=== PATIENT | male | born 1955 | race Caucasian/White ===

== ENCOUNTER 2022-11-12 08:58 | Day surgery (SDC) | payer OTHER ==
[2022-11-04 13:22] VITALS: BMI 32.3
[2022-11-12] MEDS ORDERED: TRANEXAMIC ACID 1000 MG/10 ML VIAL IVPUSH ONE (09:31)
[2022-11-12] MEDS ORDERED: CELECOXIB 200 MG CAPSULE PO ONE (09:31)
[2022-11-12] MEDS ORDERED: CEFAZOLIN 2 GM in DEXTROSE 5%-WATER - 50 ML IVPB ONE (09:31)
[2022-11-12] MEDS ORDERED: DEXAMETHASONE SOD PHOSPHATE/PF 10 MG/ML SDV ONE (10:44)
[2022-11-12] MEDS ORDERED: ACETAMINOPHEN INJECTION 100 ML IVPB ONE (10:44)
[2022-11-12] MEDS ORDERED: BUPIVACAINE HCL/PF 0.5% (5 MG/ML) 30 ML VIAL IJ ONE (10:44)
[2022-11-12] MEDS ORDERED: ceFAZolin SODIUM 1 GM VIAL ONE (10:44)
[2022-11-12] MEDS ORDERED: VANCOMYCIN 1,000 MG VIAL (RESTRICTED TO ID ONLY) ONE ×3 (10:45→13:17)
[2022-11-12] MEDS ORDERED: MIDAZOLAM HCL 2 MG/2 ML SINGLE DOSE VIAL ONE (10:49)
[2022-11-12] MEDS ORDERED: ONDANSETRON 4 MG/2 ML VIAL IVPUSH PRN (11:11)
[2022-11-12] MEDS ORDERED: PROPOFOL 60 ML ONE (11:14)
[2022-11-12] MEDS ORDERED: LACTATED RINGERS SOLUTION 1,000 ML IV SCH ×2 (11:15→11:30)
[2022-11-12] MEDS ORDERED: CLINDAMYCIN 600MG PREMIX IVPB 600 MG/50 ML BAG IVPB ONE ×2 (11:16)
[2022-11-12] MEDS ORDERED: DEXAMETHASONE SOD PHOSPHATE 4 MG/1 ML VIAL ONE (11:16)
[2022-11-12] MEDS ORDERED: KETOROLAC TROMETHAMINE 30 MG/1 ML VIAL ONE (11:16)
[2022-11-12] MEDS ORDERED: TRANEXAMIC ACID 1000 MG/10 ML VIAL ONE (11:16)
[2022-11-12] MEDS ORDERED: oxyCODONE HCL 5 MG TABLET PO PRN ×2 (11:28→13:45)
[2022-11-12] MEDS ORDERED: ACETAMINOPHEN 325 MG TABLET (FP) PO PRN (11:28)
[2022-11-12] MEDS ORDERED: PROPOFOL 20 ML ONE ×2 (12:51→13:20)
[2022-11-12] MEDS: ACETAMINOPHEN 500 MG TABLET (FP) PO PRN (18:37)
[2022-11-12 19:45] VITALS: RESP 18
[2022-11-12] MEDS: SENNOSIDES/DOCUSATE COMBO (SENNA PLUS) TABLET (UD) PO SCH (22:04)
[2022-11-13] MEDS: ACETAMINOPHEN 500 MG TABLET (FP) PO PRN ×2 (05:32→12:05)
[2022-11-13] MEDS ORDERED: ASPIRIN 325 MG TABLET PO SCH (08:00)
[2022-11-13 08:39] LABS: HEMATOCRIT 37.4 % (35.4-49); HEMOGLOBIN 12.6 G/dL (11.7-16.9); MCH 33.3 pg (25.7-33.7); MCHC 33.7 g/dl (32.0-35.9); MEAN CELL VOLUME 98.6 fl (80-96); MEAN PLT VOLUME 8.2 fl (7.5-11.1); PLATELET COUNT 207.1 10^3/uL (134-434); RBC 3.79 10^6/uL (4.00-5.60); RDW 13.3 % (11.9-15.9); WHITE BLOOD COUNT 16.7 10^3/uL (4.0-10.8)
[2022-11-13 09:18] VITALS: BP 137/67; PULSE 86; TEMP 98.1
[2022-11-13] MEDS ORDERED: PANTOPRAZOLE 40 MG TABLET PO SCH (10:00)
[2022-11-13] MEDS ORDERED: LOSARTAN 50MG/HCTZ 12.5MG 1 TAB PO SCH (10:00)
[2022-11-13] MEDS: SENNOSIDES/DOCUSATE COMBO (SENNA PLUS) TABLET (UD) PO SCH (10:00)
[2022-11-13] MEDS ORDERED: MULTIVITAMINS (DAILY MVI) TABLET (FP) PO SCH (10:00)
[2022-11-13] MEDS ORDERED: ATORVASTATIN CA 10 MG TABLET (FP) PO SCH (22:00)
== END 2022-11-13 12:24 | disposition home health service (06) ==
LOC: FASUSAT 08:58 → FM/S 16:55 → FASUSAT 11-13 12:24
PROVIDERS: ATTEND Orthopaedic Surgery
PROC: 8E0Y0CZ Robotic Assisted Procedure of Lower Extremity, Open Approach (ICD-10-PCS; 2022-11-12)
PROC: 0SRD0JA Replacement of Left Knee Joint with Synthetic Substitute, Uncemented, Open Approach (ICD-10-PCS; principal; 2022-11-12 12:03)
DX: M17.12 Unilateral primary osteoarthritis, left knee (principal)
CPT/HCPCS: 20985; 27447; C1776; S2900; 36415; 73560-TC-LT-FY; 85027; 94760; 97010-GP; 97116-GP; 97162-GP; C1713

== ENCOUNTER 2023-07-08 08:35 | Day surgery (SDC) | payer OTHER ==
[2023-07-01 14:08] VITALS: BMI 32.8
[2023-07-08] MEDS ORDERED: BUPIVACAINE HCL/PF 2.5 MG/ML - 30 ML VIAL IJ ONE (10:32)
[2023-07-08] MEDS ORDERED: BUPIVACAINE LIPOSOME/PF (EXPAREL) 266 MG/20 ML VIAL ONE (10:32)
[2023-07-08] MEDS ORDERED: BUPIVACAINE HCL/PF 0.5% (5MG/ML) 10 ML VIAL ONE ×2 (10:36→10:40)
[2023-07-08] MEDS ORDERED: MIDAZOLAM HCL 2 MG/2 ML SINGLE DOSE VIAL ONE (10:38)
[2023-07-08] MEDS ORDERED: ceFAZolin SODIUM 1 GM VIAL ONE (10:39)
[2023-07-08] MEDS ORDERED: VANCOMYCIN 1,000 MG VIAL (RESTRICTED TO ID ONLY) ONE ×2 (10:39→10:53)
[2023-07-08] MEDS ORDERED: oxyCODONE HCL 5 MG TABLET PO PRN (11:32)
[2023-07-08] MEDS ORDERED: ACETAMINOPHEN 325 MG TABLET (FP) PO PRN (11:32)
[2023-07-08] MEDS ORDERED: ONDANSETRON 4 MG/2 ML VIAL IVPUSH PRN (11:32)
[2023-07-08] MEDS ORDERED: PROPOFOL 20 ML ONE ×2 (11:44→12:24)
[2023-07-08] MEDS ORDERED: LACTATED RINGERS SOLUTION 1,000 ML IV SCH (11:45)
[2023-07-08] MEDS ORDERED: ACETAMINOPHEN INJECTION 100 ML IVPB ONE (12:09)
[2023-07-08] MEDS ORDERED: DEXAMETHASONE SOD PHOSPHATE 4 MG/1 ML VIAL ONE (12:10)
[2023-07-08] MEDS ORDERED: KETOROLAC TROMETHAMINE 30 MG/1 ML VIAL ONE (12:11)
[2023-07-08] MEDS: oxyCODONE HCL 5 MG TABLET PO PRN ×2 (15:40→20:00)
[2023-07-08] MEDS: CEFAZOLIN 3 GM in DEXTROSE 5%-WATER - 100 ML IVPB SCH (19:57)
[2023-07-08] MEDS: SENNOSIDES/DOCUSATE COMBO (SENNA PLUS) TABLET (UD) PO SCH (23:11)
[2023-07-09] MEDS ORDERED: ceFAZolin SODIUM 1 GM VIAL ONE (02:04)
[2023-07-09] MEDS: oxyCODONE HCL 5 MG TABLET PO PRN ×2 (02:17→09:45)
[2023-07-09] MEDS: CEFAZOLIN 3 GM in DEXTROSE 5%-WATER - 100 ML IVPB SCH (04:00)
[2023-07-09 06:25] VITALS: RESP 18
[2023-07-09] MEDS ORDERED: ASPIRIN 325 MG TABLET PO SCH (08:00)
[2023-07-09 08:14] LABS: HEMATOCRIT 35.3 % (35.4-49); HEMOGLOBIN 11.7 G/dL (11.7-16.9); MCH 32.5 pg (25.7-33.7); MEAN CELL VOLUME 98.5 fl (80-96); MEAN PLT VOLUME 8.2 fl (7.5-11.1); PLATELET COUNT 167.1 10^3/uL (134-434); RBC 3.58 10^6/uL (4.00-5.60); RDW 13.2 % (11.9-15.9)
[2023-07-09] MEDS: SENNOSIDES/DOCUSATE COMBO (SENNA PLUS) TABLET (UD) PO SCH (09:43)
[2023-07-09] MEDS ORDERED: LOSARTAN 50MG/HCTZ 12.5MG 1 TAB PO SCH (10:00)
[2023-07-09] MEDS ORDERED: MULTIVITAMINS (DAILY MVI) TABLET (FP) PO SCH (10:00)
[2023-07-09] MEDS ORDERED: PANTOPRAZOLE 40 MG TABLET PO SCH (10:00)
[2023-07-09 10:10] VITALS: BP 127/63; PULSE 89; TEMP 98.1
[2023-07-09] MEDS ORDERED: ATORVASTATIN CA 10 MG TABLET (FP) PO SCH (22:00)
== END 2023-07-09 15:30 | disposition home health service (06) ==
LOC: FASUSAT 08:35 → FM/S 15:08 → FASUSAT 07-09 15:30
PROVIDERS: ATTEND Orthopaedic Surgery
PROC: 8E0Y0CZ Robotic Assisted Procedure of Lower Extremity, Open Approach (ICD-10-PCS; 2023-07-08)
PROC: 0SRC0JA Replacement of Right Knee Joint with Synthetic Substitute, Uncemented, Open Approach (ICD-10-PCS; principal; 2023-07-08 12:02)
DX: M17.11 Unilateral primary osteoarthritis, right knee (principal); I10 Essential (primary) hypertension; E78.5 Hyperlipidemia, unspecified; Z87.891 Personal history of nicotine dependence
CPT/HCPCS: 20985; 27447; C1776; S2900; 36415; 73560-TC-RT-FY; 85027; 94760; 97010-GP; 97116-GP; 97162-GP; C1713